=== PATIENT | female | born 1945 | race Caucasian/White ===

== ENCOUNTER → 2017-07-17 | Outpatient (CLI) | payer MEDICARE, OTHER ==
[~2017-07-17] MED LIST: ASP81TEC PO; Atorvastatin Calcium PO; CLPD75T PO; DILT360C30 PO; ENXP100I SC; HYDR25TA4 PO; LOSA100T7 PO; LVT.025T PO; MTF500T PO; MTP50T PO; RIVA20TA2 PO; RNT150T PO; SPRN25T PO; WARF5TAB PO
== END ==
LOC: WOUNDCARE 13:57
PROVIDERS: ATTEND Nurse Practitioner
DX: E11.622 Type 2 diabetes mellitus with other skin ulcer (principal); L97.512 Non-pressure chronic ulcer of other part of right foot with fat layer exposed; L03.031 Cellulitis of right toe
CPT/HCPCS: 11042

== ENCOUNTER → 2017-07-24 | Outpatient (CLI) | payer MEDICARE, OTHER | LOC: WOUNDCARE 13:08 | PROVIDERS: ATTEND Surgery | DX: E11.622 Type 2 diabetes mellitus with other skin ulcer (principal); L97.512 Non-pressure chronic ulcer of other part of right foot with fat layer exposed; L03.031 Cellulitis of right toe | CPT/HCPCS: 99212 ==

== ENCOUNTER → 2017-07-31 | Outpatient (CLI) | payer MEDICARE, OTHER | LOC: WOUNDCARE 13:04 | PROVIDERS: ATTEND Nurse Practitioner | DX: E11.622 Type 2 diabetes mellitus with other skin ulcer (principal); L97.512 Non-pressure chronic ulcer of other part of right foot with fat layer exposed; L03.031 Cellulitis of right toe | CPT/HCPCS: 99212 ==

== ENCOUNTER → 2017-08-14 | Outpatient (CLI) | payer MEDICARE, OTHER | LOC: WOUNDCARE 13:07 | PROVIDERS: ATTEND Nurse Practitioner | DX: E11.622 Type 2 diabetes mellitus with other skin ulcer (principal); L97.512 Non-pressure chronic ulcer of other part of right foot with fat layer exposed; L03.031 Cellulitis of right toe | CPT/HCPCS: 99212 ==

== ENCOUNTER → 2017-08-21 | Outpatient (CLI) | payer MEDICARE, OTHER ==
--- NOTE | 2017-08-21 16:32 | Diagnostic Imaging Report ---
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 TIME OF EXAM: 02:18 p.m. FINDINGS: Three views of the toes of the right foot were obtained. There is generalized demineralization. No bony destructive changes are seen. No soft tissue gas is identified. IMPRESSION: No acute feature identified. Dictated by: Dictated on workstation # [id number]
== END ==
LOC: RAD 13:51
PROVIDERS: ATTEND Nurse Practitioner
DX: E11.622 Type 2 diabetes mellitus with other skin ulcer (principal); L97.512 Non-pressure chronic ulcer of other part of right foot with fat layer exposed
CPT/HCPCS: 73660

== ENCOUNTER → 2017-08-21 | Outpatient (CLI) | payer MEDICARE, OTHER | LOC: WOUNDCARE 13:12 | PROVIDERS: ATTEND Nurse Practitioner | DX: E11.622 Type 2 diabetes mellitus with other skin ulcer (principal); L97.512 Non-pressure chronic ulcer of other part of right foot with fat layer exposed | CPT/HCPCS: 99213 ==

== ENCOUNTER → 2017-08-28 | Outpatient (CLI) | payer MEDICARE, OTHER | LOC: WOUNDCARE 13:05 | PROVIDERS: ATTEND Nurse Practitioner | DX: E11.622 Type 2 diabetes mellitus with other skin ulcer (principal); L97.512 Non-pressure chronic ulcer of other part of right foot with fat layer exposed | CPT/HCPCS: 99213 ==

== ENCOUNTER → 2017-09-11 | Outpatient (CLI) | payer MEDICARE, OTHER | LOC: WOUNDCARE 13:04 | PROVIDERS: ATTEND Nurse Practitioner | DX: E11.622 Type 2 diabetes mellitus with other skin ulcer (principal); L97.512 Non-pressure chronic ulcer of other part of right foot with fat layer exposed | CPT/HCPCS: 99212 ==

== ENCOUNTER 2021-07-07 12:29 | Emergency (ER) | payer MEDICARE, OTHER ==
[~2021-07-07] VITALS: Ht 167 cm; Wt 85.0 kg
--- OUTSIDE RECORDS SUMMARY | 2021-07-07 12:34 | XMS REPORT | Clinical Summary ---
Author Author [facility] Organization [facility] Address Unknown Phone Unavailable Care Team Providers Care Ground Layer Name Role Phone Cecily Bach MD Unavailable Mejia Amezquita PCP Jayda Candelaria MD Unavailable [phone] Source Comments Some departments are not documenting in the electronic medical record. If you d o not see the information that you expected, contact Release of Information in [facility] [email or web address] Information Management department at [phone] for further assistan ce in locating additional records.[facility] Allergies Comments Active Allergy Reactions Severity Noted Date Losartan STOMACH UPSET Low 11/23/2019 Lisinopril NAUSEA AND Low 01/01/2014 VOMITING Ezetimibe DIARRHEA Low 11/25/2018 Medications End Date Status Medication Sig Dispensed Refills Start Date Active metFORMIN (GLUCOPHAGE) Take 500 mg 0 500 mg tablet by mouth three times daily. Active levothyroxine (SYNTHROID) Take 1 Tab by 90 Tab 2 50 mcg tablet mouth daily 5 before breakfast. Active other medication 1 Dose daily. 0 Artichoke Extract 500 mg Active aspirin EC 81 mg tablet Take 81 mg by 0 mouth daily. Active Chromium 200 mcg tab Take 1 tablet 0 by mouth four times daily. Active calcium carbonate (TUMS) Chew 500 mg 0 500 mg (200 mg elemental by mouth as calcium) chewable tablet Needed. Active ascorbic acid (VITAMIN C) Take 1,000 mg 0 500 mg tablet by mouth daily. Active other medication twice daily. 0 Berberine - diabetes support Active omega-3s/dha/epa/fish Take by 0 oil/D3 (VITAMIN-D + mouth. OMEGA-3 PO) Active zinc sulfate 220 mg (50 Take 220 mg 0 mg elemental zinc) by mouth capsule daily. Active Cinnamon Bark 500 mg cap Take by 0 mouth twice daily. Active dilTIAZem CD (CARDIZEM Take one 90 capsule 3 CD) 180 mg capsule capsule by 1 mouth daily. Active furosemide (LASIX) 20 mg TAKE ONE 45 tablet 3 0 tablet TABLET BY 1 MOUTH EVERY 48 HOURS Active XARELTO 20 mg TAKE ONE 30 tablet 11 tabletIndications: Atrial TABLET BY 1 fibrillation with MOUTH DAILY controlled ventricular WITH DINNER response (HCC) TAKE WITH FOOD Active atorvastatin (LIPITOR) 40 TAKE ONE 90 tablet 3 mg tablet TABLET BY 1 MOUTH DAILY Active losartan (COZAAR) 100 mg Take one 90 tablet 2 0 tabletIndications: tablet by 1 Coronary artery disease mouth at involving rincon coronary bedtime artery of rincon heart daily. without angina pectoris, Essential hypertension Active metoprolol XL (TOPROL XL) TAKE ONE 90 tablet 3 25 mg extended release TABLET BY 1 tabletIndications: Atrial MOUTH DAILY fibrillation with controlled ventricular response (HCC), Coronary artery disease involving rincon coronary artery of rincon heart without angina pectoris, Cardiomyopathy (HCC) Active Problems Problem Noted Date Chest pain at rest 09/06/2014 UTI (urinary tract infection) 01/03/2014 CAD (coronary artery disease) 01/03/2014 Overview: Formatting of this note is different fr om the original. A. 09/30/2012 Echo EF 40%, RV nl, bubb le study negative for PFO. 2D only study. B. 10/01/2012 Echo EF 20%, RV mildly i mpaired, non specific MV thickening, mild MR, mild TR, aortic sclerosis with out stenosis, peak PAP was 42 mmHg, aortic root 4.0 cm. C. 12/17/2012 Echo EF of 45%. There is moderate LVH. RV function was normal. There was mitral annular calc ification with trace MR, trace TR, and a mildly dilated aortic root. Her peak pulmonary pressure is 20 mmHg. It should be noted when she was critically ill her EF was as low as 20%. D. 12/22/2013 [facility] [place] [facility] wed EF of 60%. The left main was normal. The LAD had a 90% lesion. T he circumflex was normal. The RCA had a 60% lesion, which was felt to be unobstructed. E. 09/06/2014 MPI EF 62%, no ischemia. F. 10/22/16 ECHO EF = 65%, Moderate L VH G. 11/20/2016 MPI EF of 60%. The end-d iastolic volume was 55 mL. The pulmonary myocardial count ratio was no rmal at 0.34. There was no transient ischemic dilatation. The per fusion pattern was normal. There was no evidence of ischemia. H. 07/15/2019 Echo EF was 55 to 60%, d iastolic function was unable to be assessed, the RV was mildly dilated wit h preserved function, the quantitative parameters were abnormal, the RV S prime was 10 cm/s, the TAPSE was 1.1 cm, the visually the func tion was preserved. She has MAC with nonspecific mitral valve thickenin g, there is decreased mobility of the posterior leaflet, the mean mitral valve gradient was 1.6 mmHg, there is no significant MR, there is trace TR , there is aortic valve sclerosis without stenosis, there is no AI. The peak pulmonary pressure was unable to be calculated. Acute blood loss anemia 01/03/2014 DM2 (diabetes mellitus, type 2) 01/01/2014 GERD (gastroesophageal reflux disease) 01/01/2014 Atrial fibrillation with controlled ventricular respo nse 01/08/2013 History of stroke 12/16/2012 Acute ischemic stroke 10/10/2012 Confusion 09/29/2012 Vision abnormalities 09/29/2012 HTN (hypertension) 09/29/2012 Abnormal MRI 09/29/2012 Hypothyroidism 09/29/2012 Resolved Problems Problem Noted Date Resolved Date Retroperitoneal bleed 01/01/2014 02/07/2014 Surgical History Surgery Date Site/Laterality Comments TONSILLECTOMY HYSTERECTOMY Medical History Medical History Date Comments HTN (hypertension) HLD (hyperlipidemia) DM (diabetes mellitus) (HCC) Stroke (HCC) Atrial fibrillation with RVR (HCC) Heart failure (HCC) Atrial fibrillation with controlled 01/08/2013 ventricular response (HCC) Family History Medical History Relation Name Comments Hypertension Mother Stroke Mother Relation Name Status Comments Father Mother Social History Date Tobacco Use Types Packs/Day Years Used Former Smoker Smokeless Tobacco: Never Used Tobacco Cessation: Counseling Given: No Comments Alcohol Use Standard Drinks/Week No 0 (1 standard drink = 0.6 o z pure alcohol) Sex Assigned at Date Recorded Not on file Last Filed Vital Signs Reading Time Taken Comments Vital Sign 142/84 12/14/2019 1:06 PM CDT Blood Pressure 70 12/14/2019 1:06 PM CDT Pulse 37 C (98.6 F) 12/14/2019 1:06 PM CDT Temperature - - Respiratory Rate 96% 10/09/2017 2:34 PM CDT Oxygen Saturation - - Inhaled Oxygen Concentration 92.6 kg (204 lb 1.6 oz) 12/14/2019 1:06 PM CDT Weight 165.1 cm (5' 5") 12/14/2019 1:06 PM CDT Height 33.96 12/14/2019 1:06 PM CDT Body Mass Index Plan of Treatment Health Maintenance Due Date Last Done Comments MEDICARE ANNUAL WELLNESS 1945 VISIT PNEUMONIA (PPSV23) 1953 VACCINE (1 of 2 - PPSV23) DILATED EYE EXAM 1965 DTAP/TDAP VACCINES (1 - 1965 Tdap) FOOT EXAM 1965 HEPATITIS C SCREENING 1965 PHYSICAL (COMPREHENSIVE) 1965 EXAM BREAST CANCER SCREENING 1987 COLORECTAL CANCER 1997 SCREENING SHINGLES RECOMBINANT 1997 VACCINE (1 of 2) OSTEOPOROSIS 2012 SCREENING/MONITORING HBA1C 12/18/2020 06/20/2020, 11/05/2018, 03/26/2017, Additional history exists INFLUENZA VACCINE 02/25/2021 Results Not on filefrom Last 3 Months Insurance Type Payer Benefit Subscriber ID Effective Phone Address Plan / Dates Group Medicare MEDICARE MEDICARE [id number] 2012-P [phone] [address] [place] [address] Medicare CIGNA CIGNA [id number] 2014-P [phone] [address] MED[address]ARE [id number] [phone] Advance Directives Patient [employer] Explanation Type Date Recorded Advance 01/01/2014 4:03 PM Directive/DPOA Advance Directives 01/08/2013 9:11 AM and Living Will Advance Directives 12/29/2012 1:50 PM and Living Will Advance Directives 12/22/2012 12:27 PM and Living Will Advance Directives 12/17/2012 8:56 AM and Living Will Advance Directives 11/17/2012 11:11 AM and Living Will Advance Directives 10/01/2012 2:30 PM and Living Will Advance Directives 09/30/2012 8:06 AM and Living Will Date Inactivated Comments Code Status Date Activated 01/06/2014 6:04 PM Full Code 01/01/2014 1:22 AM Provider has discussed Code Status No, more discussi on w/Patient or Family? needed 12/18/2012 8:39 PM Full Code 12/16/2012 6:04 PM Provider has discussed Code Status Yes w/Patient or Family? 10/06/2012 1:50 PM Full Code 09/29/2012 8:35 PM Provider has discussed Code Status Yes w/Patient or Family? 09/29/2012 8:35 PM Full Code 09/29/2012 5:54 PM Provider has discussed Code Status No, more discussi on w/Patient or Family? needed Care Teams Start Date End Date Ground Layer Relationship Specialty 09/29/12 Mejia Amezquita PCP - [address] [place] [address] 09/29/12 Cecily Bach MD Neurology [address] [place] [id number] 12/16/12 Jayda Candelaria, Neurology [address] [place] [address]
--- NOTE | 2021-07-07 13:15 | ED Integumentary General ---
General Chief Complaint: Allergic Reaction Stated Complaint: RASH, HIVES Nursing Triage Note: THE PT IS ASSISTED TO THE ROOM BY WHEELCHAIR. NO DISTRESS IS SEEN ON ARRIVAL. LOC IS NORMAL FOR THE PT. THE PT C/O AN ALLERGIC REACTION. Source: patient Exam Limitations: no limitations History of Present Illness Date Seen by Provider: Jul 07, 2021 Time Seen by Provider: 13:13 Initial Comments To ER by private vehicle accompanied by with reports of concern about an allergic reaction. She noticed this yesterday with some redness to her forehead. This does not itch. She has had a fever and general weakness starting yesterday as well. No known injury to the head. History of CVA and her provides most of her care. Timing/Duration: constant Severity: moderate Location: face Possible Cause: no cause identified Associated Symptoms: fever, rash Allergies and Home Medications Allergies Coded Allergies: lisinopril (Unverified Allergy, Unknown, 12/22/13) Patient Home Medication List Home Medication List Reviewed: Yes Aspirin (Aspirin Ec 81 Mg) 81 Mg Tabec, 81 MG PO DAILY Prescribed by: SANJAY CHEN on 12/23/13 160 Clopidogrel Bisulfate (Plavix Tablet) 75 Mg Tab, 75 MG PO DAILY Prescribed by: SANJAY CHEN on 12/23/13 160 Diltiazem Hcl (Diltiazem Er 360 Mg (Once Daily)) 360 Mg Capsule.sa, 360 MG PO DAILY, (Reported) Entered as Reported by: JESSICA OLSON on 12/22/13735 Enoxaparin Sodium (Lovenox Injection) 100 Mg/Ml Soln, 90 MG SC BID Prescribed by: SANJAY CHEN on 12/23/13 160 Hydrochlorothiazide (Hydrochlorothiazide) 25 Mg Tablet, 25 MG PO DAILY, (Report ed) Entered as Reported by: JESSICA OLSON on 12/22/13 07 Levothyroxine Sodium (Synthroid) 25 Mcg Tablet, 25 MCG PO DAILY, (Reported) Entered as Reported by: JESSICA OLSON on 12/22/13 07 Losartan Potassium (Losartan Potassium) 100 Mg Tablet, 50 MG PO DAILY, (Reported) Entered as Reported by: JESSICA OLSON on 12/22/13 07 Metformin Hcl (Metformin 500 Mg) 500 Mg Tablet, 500 EACH PO BID WITH MEALS, (Reported) Entered as Reported by: JESSICA OLSON on 12/22/13 0736 Metoprolol Tartrate (Metoprolol Tartrate 50 Mg) 50 Mg Tablet, 50 MG PO DAILY, (Reported) Entered as Reported by: JESSICA OLSON on 12/22/13 0736 Ranitidine Hcl (Zantac 150 Mg) 150 Mg Tablet, 1 TAB PO BID Prescribed by: SANJAY CHEN on 12/23/13 160 Spironolactone (Aldactone Tablet) 25 Mg Tab, 25 MG PO DAILY, (Reported) Entered as Reported by: JESSICA OLSON on 12/22/13 0736 Warfarin Sodium (Coumadin) 5 Mg Tab, 5 MG PO DAILY@1800 Prescribed by: SANJAY CHEN on 12/23/13 160 [Atorvastatin Calcium] 10 MG TABLET, 10 MG PO HS Prescribed by: SANJAY CHEN on 12/23/131606 Review of Systems Review of Systems Constitutional: see HPI; No chills; fever EENTM: see HPI Respiratory: no symptoms reported Cardiovascular: no symptoms reported Genitourinary: no symptoms reported Musculoskeletal: no symptoms reported Skin: see HPI Psychiatric/Neurological: No Symptoms Reported Endocrine: No Symptoms Reported Past [id number] Hx Immunizations Up To Date Tetanus Booster (TDap): Unknown Past Medical History Reproductive Disorders: No Arthritis Hearing Impairment: Denies Adverse Reaction/Blood Tranf: No Physical Exam Vital Signs Vital Signs - First Documented 07/07/21 12:52 Temp 37.4 Pulse 61 Resp 18 B/P (MAP) 149/78 (101) Pulse Ox 94 Capillary Refill : Less Than 3 Seconds General Appearance: WD/WN, no apparent distress HEENT: PERRL/EOMI, normal ENT inspection, other (Alert and oriented. She has some well demarcated erythema that involves both sides of the forehead causing upper eyelid edema. There is no nidus of infection that is obvious no open or draining wound. No abscess. This is an erysipelas.) Neck: non-tender, full range of motion Respiratory: no respiratory distress, no accessory muscle use Gastrointestinal: normal bowel sounds, non tender Extremities: normal range of motion, non-tender Neurologic/Psychiatric: alert, normal mood/affect, oriented x 3 Skin: normal color, warm/dry Progress/Results/Core Measures Results/Orders Lab Results Laboratory Tests Test 07/07/21 13:10 Range/Units White Blood Count 8.9 4.3-11.0 10^3/uL Red Blood Count 4.66 3.80-5.11 10^6/uL Hemoglobin 12.4 11.5-16.0 g/dL Hematocrit 40 35-52 % Mean Corpuscular Volume 85 80-99 fL Mean Corpuscular Hemoglobin 27 25-34 pg Mean Corpuscular Hemoglobin Concent 31 L 32-36 g/dL Red Cell Distribution Width 15.2 H 10.0-14.5 % Platelet Count 215 130-400 10^3/uL Mean Platelet Volume 10.5 9.0-12.2 fL Immature Granulocyte % (Auto) 0 % Neutrophils (%) (Auto) 83 H 42-75 % Lymphocytes (%) (Auto) 11 L 12-44 % Monocytes (%) (Auto) 5 0-12 % Eosinophils (%) (Auto) 0 0-10 % Basophils (%) (Auto) 0 0-10 % Neutrophils # (Auto) 7.4 1.8-7.8 10^3/uL Lymphocytes # (Auto) 0.9 L 1.0-4.0 10^3/uL Monocytes # (Auto) 0.5 0.0-1.0 10^3/uL Eosinophils # (Auto) 0.0 0.0-0.3 10^3/uL Basophils # (Auto) 0.0 0.0-0.1 10^3/uL Immature Granulocyte # (Auto) 0.0 0.0-0.1 10^3/uL Sodium Level 138 135-145 MMOL/L Potassium Level 3.3 L 3.6-5.0 MMOL/L Chloride Level 105 98-107 MMOL/L Carbon Dioxide Level 21 21-32 MMOL/L Anion Gap 12 5-14 MMOL/L Blood Urea Nitrogen 17 7-18 MG/DL Creatinine 1.10 0.60-1.30 MG/DL Estimat Glomerular Filtration Rate 49 BUN/Creatinine Ratio 15 Glucose Level 226 H 70-105 MG/DL Calcium Level 10.0 8.5-10.1 MG/DL C-Reactive Protein High Sensitivity 14.24 H 0.00-0.50 MG/DL Procalcitonin 0.12 H <0.10 NG/ML Marcie Abernathy - CORTES,PETER J ADMITTING COORDINATOR Cbc With Automated Diff (07/07/21 13:11) Hs C Reactive Protein (07/07/21 13:11) Basic Metabolic Panel (07/07/21 13:11) Ed Iv/Invasive Line Start (07/07/21 13:11) Procalcitonin (Pct) (07/07/21 13:11) Ua Culture If Indicated (07/07/21 13:16) Ceftriaxone 1 Gm Pre-Mix (Rocephin 1 Gm (07/07/21 13:30) Medications Given in ED Current Medications Medications Dose Ordered Sig/Martin Route Start Time Stop Time Status Last Admin Dose Admin Ceftriaxone Sodium/Dextrose 50 ml @ 100 mls/hr ONCE ONCE IV 07/07/21 13:30 07/07/21 13:59 DC 07/07/21 13:26 100 MLS/HR Vital Signs/I&O 07/07/21 12:52 Temp 37.4 Pulse 61 Resp 18 B/P (MAP) 149/78 (101) Pulse Ox 94 Blood Pressure Mean: 101 Departure Communication (Admissions) Given her symptoms of general weakness and fever I will check some labs and urine. However the erythema to the forehead I do not feel is allergic I think this is infectious. This affects bilateral forehead there are no vesicles and this is not a herpes zoster presentation. Impression Primary Impression: Erysipelas Disposition: 01 HOME, SELF-CARE Condition: Stable Departure-Patient Inst. Decision time for Depature: 13:33 Referrals: AMAYA MOJICA DO (PCP) Primary Care Physician Patient Instructions: Erysipelas (DC) Add. Discharge Instructions: 1. Antibiotics as directed. Follow-up with your doctor next week. Return to ER for any worsening. All discharge instructions reviewed with patient and/or family. Voiced understanding. Scripts Cephalexin (Cephalexin) 500 Mg Tablet 500 MG PO QID, #28 TAB Prov: LAURA CORTES APRN 07/07/21 LAURA CORTES APRN Jul 07, 2021 13:15
[2021-07-07 13:19] LABS: BASOPHILS % (AUTO) 0 % (0-10); EOSINOPHILS % (AUTO) 0 % (0-10); HEMATOCRIT 40 % (35-52); HEMOGLOBIN 12.4 g/dL (11.5-16.0); LYMPHOCYTES # (AUTO) 0.9 10^3/uL (1.0-4.0); LYMPHOCYTES % (AUTO) 11 % (12-44); MEAN CORPUSCULAR HEMOGLOBIN 27 pg (25-34); MEAN CORPUSCULAR HGB CONC 31 g/dL (32-36); MEAN CORPUSCULAR VOLUME 85 fL (80-99); MEAN PLATELET VOLUME 10.5 fL (9.0-12.2); MONOCYTES # (AUTO) 0.5 10^3/uL (0.0-1.0); MONOCYTES % (AUTO) 5 % (0-12); NEUTROPHILS # (AUTO) 7.4 10^3/uL (1.8-7.8); NEUTROPHILS % (AUTO) 83 % (42-75); PLATELET COUNT 215 10^3/uL (130-400); WHITE BLOOD COUNT 8.9 10^3/uL (4.3-11.0)
[2021-07-07 13:29] LABS: POTASSIUM 3.3 MMOL/L (3.6-5.0)
[2021-07-07] MEDS ORDERED: cefTRIAXone 1 GM PRE-MIX 50 ML IV ONE (13:30)
[2021-07-07 13:35] LABS: CREATININE SERUM 1.1 MG/DL (0.60-1.30)
[2021-07-07] MEDS ORDERED: CEPH500T PO (14:36)
[2021-07-07 14:41] VITALS: BP 147/78
== END 2021-07-07 14:42 | disposition home or self-care (01) ==
LOC: EDUNIT# 12:29 → ER 12:31
DX: A46 Erysipelas (principal); Z79.01 Long term (current) use of anticoagulants; Z79.82 Long term (current) use of aspirin
CPT/HCPCS: 36415; 80048; 84145; 85025; 86141; 96374

== ENCOUNTER 2023-03-13 04:43 | Emergency (ER) | payer MEDICARE ==
[~2023-03-13] VITALS: Ht 167 cm; Wt 85.0 kg
[~2023-03-13 04:43] MED LIST changes: +CEPH500T PO
[2023-03-13 04:56] VITALS: BP_DIAS 111
[2023-03-13] MEDS ORDERED: LEVO50TA6 (05:07)
[2023-03-13] MEDS ORDERED: LOSA100T58 (05:07)
[2023-03-13] MEDS ORDERED: FURO20TA4 (05:07)
[2023-03-13] MEDS ORDERED: XARELTO (05:07)
[2023-03-13] MEDS ORDERED: CARV6.252 (05:07)
[2023-03-13] MEDS ORDERED: ROSU5TAB13 (05:07)
--- NOTE | 2023-03-13 05:12 | ED GI ---
General Chief Complaint: Abdominal/GI Problems Stated Complaint: DARK URINE/HIGH BLOOD SUGAR/LOWER L ABD/BACK PAIN Source of Information: Patient, Spouse ( DOES MOST OF TALKING FOR PT) History of Present Illness Date Seen by Provider: Mar 13, 2023 Time Seen by Provider: 04:57 Initial Comments PT ARRIVES VIA POV FROM HOME WITH , NEEDS WHEELCHAIR ON ARRIVAL PT "JUST HASN'T FELT GOOD" SINCE LAST FRIDAY --NO APPETITE AND NAUSEA SINCE YESTERDAY SHE HAS BEEN HAVING LEFT FLANK AND LEFT LOWER ABDOMINAL PAIN , HAS BEEN CONSTANT AND GETTING WORSE SINCE LAST NIGHT URINE HAS BEEN DARK, BUT NO DIFFICULTY URINATING AND NO PAIN ON URINATION HAD SMALL BM YESTERDAY. HAS NOT CHECKED TEMP. HAS NOT TAKEN ANYTHING FOR PAIN HAS NOT SOUGHT CARE UNTIL NOW NO HISTORY OF SIMILAR PT IS DIABETIC, BLOOD SUGAR WAS 173 AT 0205. PT IS ON XARELTO FOR ATRIAL FIBRILLATION. SHE ALSO TAKES MEDICATIONS FOR HTN, HYPOTHYROIDISM. PCP: DR. MOJICA [facility]: DR. [place] AT Allergies and Home Medications Allergies Coded Allergies: lisinopril (Unverified Allergy, Unknown, 12/22/13) Patient Home Medication List Home Medication List Reviewed: Yes Aspirin (Aspirin Ec 81 Mg) 81 Mg Tabec, 81 MG PO DAILY Prescribed by: SANJAY CHEN on 12/23/13 1607 Carvedilol (Carvedilol) 6.25 Mg Tablet, (Reported) Entered as Reported by: AFTAB BAI on 03/13/23506 Last Action: New Order Diltiazem Hcl (Diltiazem Er 360 Mg (Once Daily)) 360 Mg Capsule.sa, 360 MG PO DAILY, (Reported) Entered as Reported by: JESSICA OLSON on 12/22/13 0736 Furosemide (Furosemide) 20 Mg Tablet, (Reported) Entered as Reported by: AFTAB BAI on 03/13/23506 Last Action: New Order Levothyroxine Sodium (Synthroid) 25 Mcg Tablet, 25 MCG PO DAILY, (Reported) Entered as Reported by: JESSICA OLSON on 12/22/13 0736 Levothyroxine Sodium (Levothyroxine Sodium) 50 Mcg Tablet, (Reported) Entered as Reported by: AFTAB BAI on 03/13/23506 Last Action: New Order Losartan Potassium (Losartan Potassium) 100 Mg Tablet, (Reported) Entered as Reported by: AFTAB BAI on 03/13/23506 Last Action: New Order Metformin Hcl (Metformin 500 Mg) 500 Mg Tablet, 500 EACH PO BID WITH MEALS, (Reported) Entered as Reported by: JESSICA OLSON on 12/22/13735 Rosuvastatin Calcium (Rosuvastatin Calcium) 5 Mg Tablet, (Reported) Entered as Reported by: AFTAB BAI on 03/13/23506 Last Action: New Order [Xarelto] , (Reported) Entered as Reported by: AFTAB BAI on 03/13/23506 Last Action: New Order Discontinued Medications Cephalexin (Cephalexin) 500 Mg Tablet, 500 MG PO QID Discontinued Reason: No Longer Taking Prescribed by: LAURA CORTES on 07/07/21 143 Last Action: Discontinued Clopidogrel Bisulfate (Plavix Tablet) 75 Mg Tab, 75 MG PO DAILY Discontinued Reason: No Longer Taking Prescribed by: SANJAY CHEN on 12/23/131606 Last Action: Discontinued Enoxaparin Sodium (Lovenox Injection) 100 Mg/Ml Soln, 90 MG SC BID Discontinued Reason: No Longer Taking Prescribed by: SANJAY CHEN on 12/23/131606 Last Action: Discontinued Hydrochlorothiazide (Hydrochlorothiazide) 25 Mg Tablet, 25 MG PO DAILY, (Reported) Discontinued Reason: No Longer Taking Entered as Reported by: JESSICA OLSON on 12/22/13735 Last Action: Discontinued Losartan Potassium (Losartan Potassium) 100 Mg Tablet, 50 MG PO DAILY, (Reported) Discontinued Reason: No Longer Taking Entered as Reported by: JESSICA OLSON on 12/22/13735 Last Action: Discontinued Metoprolol Tartrate (Metoprolol Tartrate 50 Mg) 50 Mg Tablet, 50 MG PO DAILY, (Reported) Discontinued Reason: No Longer Taking Entered as Reported by: JESSICA OLSON on 12/22/13735 Last Action: Discontinued Ranitidine Hcl (Zantac 150 Mg) 150 Mg Tablet, 1 TAB PO BID Discontinued Reason: No Longer Taking Prescribed by: SANJAY CHEN on 12/23/131606 Last Action: Discontinued Spironolactone (Aldactone Tablet) 25 Mg Tab, 25 MG PO DAILY, (Reported) Discontinued Reason: No Longer Taking Entered as Reported by: JESSICA OLSON on 12/22/13735 Last Action: Discontinued Warfarin Sodium (Coumadin) 5 Mg Tab, 5 MG PO DAILY@1800 Discontinued Reason: No Longer Taking Prescribed by: SANJAY CHEN on 12/23/131606 Last Action: Discontinued [Atorvastatin Calcium] 10 MG TABLET, 10 MG PO HS Discontinued Reason: No Longer Taking Prescribed by: SANJAY CHEN on 12/23/131606 Last Action: Discontinued Review of Systems Review of Systems Constitutional: see HPI, malaise EENTM: No Symptoms Reported Respiratory: No Symptoms Reported Cardiovascular: No Symptoms Reported Gastrointestinal: See HPI, Abdominal Pain; Denies Constipated, Denies Diarrhea; Nausea, Poor Appetite Genitourinary: See HPI, Flank Pain Musculoskeletal: see HPI, back pain Skin: no symptoms reported Psychiatric/Neurological: No Symptoms Reported Endocrine: No Symptoms Reported Hematologic/Lymphatic: No Symptoms Reported Past Iehloxm-Xhxacb-Zjusah Hx Patient Social History Tobacco Use?: No Substance use?: No Alcohol Use?: No Immunizations Up To Date Tetanus Booster (TDap): Unknown Past Medical History Atrial Fibrillation, High Cholesterol, Hypertension Neurological: No Reproductive Disorders: No Genitourinary: No Gastrointestinal: No Musculoskeletal: Yes Arthritis Endocrine: Yes (OBESITY) Hypothyroidsim, Diabetes, Non-Insulin dep HEENT: No Hearing Impairment: Denies Psychosocial: No Integumentary: No Blood Disorders: No Adverse Reaction/Blood Tranf: No Physical Exam Vital Signs Vital Signs - First Documented 03/13/23 04:56 Temp 36.9 Pulse 72 Resp 18 B/P (MAP) 201/111 (141) Pulse Ox 98 O2 Delivery Room Air Capillary Refill : Height/Weight/BMI Height: 5'5.00" Weight: 200lbs. 3.2oz. [id number]; 30.00 BMI Method: General Appearance: WD/WN, no apparent distress, obese, other (DOES NOT APPEAR TO BE IN ANY DISCOMFORT OR DISTRESS) Neck: normal inspection Respiratory: normal breath sounds Cardiovascular: irregularly irregular Gastrointestinal: soft, tenderness (LLQ AND LEFT FLANK TENDERNESS) Extremities: normal inspection Back: CVA tenderness (L) Neurologic/Psychiatric: no motor/sensory deficits, alert, normal mood/affect, oriented x 3 Skin: normal color, warm/dry Progress/Results/Core Measures Results/Orders Lab Results Laboratory Tests Test 03/13/23 05:11 03/13/23 05:24 03/13/23 06:49 Range/Units White Blood Count 11.1 H 4.3-11.0 10^3/uL Red Blood Count 4.74 3.80-5.11 10^6/uL Hemoglobin 12.2 11.5-16.0 g/dL Hematocrit 40 35-52 % Mean Corpuscular Volume 84 80-99 fL Mean Corpuscular Hemoglobin 26 25-34 pg Mean Corpuscular Hemoglobin Concent 31 L 32-36 g/dL Red Cell Distribution Width 16.2 H 10.0-14.5 % Platelet Count 232 130-400 10^3/uL Mean Platelet Volume 9.9 9.0-12.2 fL Immature Granulocyte % (Auto) 0 % Neutrophils (%) (Auto) 81 H 42-75 % Lymphocytes (%) (Auto) 14 12-44 % Monocytes (%) (Auto) 4 0-12 % Eosinophils (%) (Auto) 1 0-10 % Basophils (%) (Auto) 0 0-10 % Neutrophils # (Auto) 8.9 H 1.8-7.8 10^3/uL Lymphocytes # (Auto) 1.5 1.0-4.0 10^3/uL Monocytes # (Auto) 0.5 0.0-1.0 10^3/uL Eosinophils # (Auto) 0.1 0.0-0.3 10^3/uL Basophils # (Auto) 0.0 0.0-0.1 10^3/uL Immature Granulocyte # (Auto) 0.0 0.0-0.1 10^3/uL Prothrombin Time 22.1 H 12.2-14.7 SEC INR Comment 1.9 H 0.8-1.4 Activated Partial Thromboplast Time 41 H 24-35 SEC Sodium Level 139 135-145 MMOL/L Potassium Level 3.9 3.6-5.0 MMOL/L Chloride Level 106 98-107 MMOL/L Carbon Dioxide Level 23 21-32 MMOL/L Anion Gap 10 5-14 MMOL/L Blood Urea Nitrogen 20 H 7-18 MG/DL Creatinine 1.22 0.60-1.30 MG/DL Estimat Glomerular Filtration Rate 46 BUN/Creatinine Ratio 16 Glucose Level 188 H 70-105 MG/DL Calcium Level 9.7 8.5-10.1 MG/DL Corrected Calcium 9.7 8.5-10.1 MG/DL Magnesium Level 1.5 L 1.6-2.4 MG/DL Total Bilirubin 0.5 0.1-1.0 MG/DL Aspartate Amino Transf (AST/SGOT) 15 5-34 U/L Alanine Aminotransferase (ALT/SGPT) 12 0-55 U/L Alkaline Phosphatase 88 40-136 U/L Total Protein 7.3 6.4-8.2 GM/DL Albumin 4.0 3.2-4.5 GM/DL Amylase Level 76 25-125 U/L Lipase 32 8-78 U/L Glucometer 186 H 70-110 MG/DL Urine Color RED H Urine Clarity CLOUDY Urine pH 5.5 5-9 Urine Specific [place] 1.020 1.016-1.022 Urine Protein 3+ H NEGATIVE Urine Glucose (UA) TRACE H NEGATIVE Urine Ketones 1+ H NEGATIVE Urine Nitrite NEGATIVE NEGATIVE Urine Bilirubin 1+ H NEGATIVE Urine Urobilinogen 0.2 < = 1.0 MG/DL Urine Leukocyte Esterase NEGATIVE NEGATIVE Urine RBC (Auto) 3+ H NEGATIVE Urine RBC TNTC H /HPF Urine WBC 2-5 /HPF Urine Squamous Epithelial Cells 2-5 /HPF Urine Crystals PRESENT H /LPF Urine Amorphous Sediment FEW SANTOS URATES H /LPF Urine Bacteria MODERATE H /HPF Urine Casts NONE /LPF Urine Mucus NEGATIVE /LPF Urine Culture Indicated YES My Orders Orders - LETTY CROCKETT DO Accucheck Stat ONCE (03/13/23 04:56) Ed Iv/Invasive Line Start (03/13/23 04:56) Monitor-Rhythm Ecg Trace Only (03/13/23 04:56) Amylase (03/13/23 04:56) Cbc With Automated Diff (03/13/23 04:56) Comprehensive Metabolic Panel (03/13/23 04:56) Lipase (03/13/23 04:56) Magnesium (03/13/23 04:56) Ua Culture If Indicated (03/13/23 04:56) Protime With Inr (03/13/23 04:58) Partial Thromboplastin Time (03/13/23 04:58) Ct Abd/Pelvis Wo(Kidney Stone) (03/13/23 05:07) Urine Culture (03/13/23 06:49) Vital Signs/I&O 03/13/23 04:56 Temp 36.9 Pulse 72 Resp 18 B/P (MAP) 201/111 (141) Pulse Ox 98 O2 Delivery Room Air Progress Progress Note : Progress Note VITALS ON ARRIVAL: TEMP 36.9, HR 72, RR 18, BP 201/111, O2 SAT 98% ON ROOM AIR LABS: -CBC IS UNREMARKABLE -CMP WITH GLU 188, MG 1.5, OTHERWISE UNREMARKABLE -UA -PT/PTT/INR 22.1/41/1.9 CT WITH LEFT HYDRONEPHROSIS WITHOUT OBVIOUS URETERAL STONE. GIVEN: -TORADOL -ROCEPHIN CBC UNREMARKABLE WITH WBC NO EVIDENCE OF SEPSIS OR DEHYDRATION DISCUSSED TEST RESULTS, ANTICIPATED COURSE, SYMPTOMATIC TREATMENT, MEDICATIONS, NEED FOR FOLLOW UP AND RETURN PRECAUTIONS Diagnostic Imaging Comments CT SCAN ABDOMEN/PELVIS--PER RADIOLOGIST REPORT AT 0645 COMPARISON: None available. FINDINGS: Lower chest: The lung bases are clear. No pericardial or pleural effusion. Peritoneum: No free intraperitoneal air or fluid. Liver and biliary system: Unenhanced liver is normal. The gallbladder is normal. No biliary duct dilation. Spleen and Pancreas: Spleen is normal. Unenhanced pancreas is grossly normal. Adrenals: Normal. tract: Mild left hydronephrosis and hydroureter without obstructing stone present. There are a few phleboliths around the distal left ureter within the pelvis. A nonobstructing 5 mm stone is present lower pole left kidney. Asymmetric left perinephric stranding is present. No right-sided renal or ureteral stones. GI tract: Stomach is decompressed. No bowel obstruction. No pericolonic inflammatory changes. No secondary features of acute appendicitis Vasculature and Lymph nodes: Normal caliber aorta. No abdominal or pelvic lymphadenopathy. Musculoskeletal: No concerning osseous lesion. IMPRESSION: 1. Mild left hydronephrosis and hydroureter without obstructing ureteral stone. This may be due to recently passed stone. 2. Nonobstructing 5 mm left renal stone. Reviewed: Reviewed by Me Departure Impression Primary Impression: Urinary tract infection Additional Impressions: Hematuria ANTICOAGULATION Disposition: 01 HOME, SELF-CARE Condition: Stable Departure-Patient Inst. Decision time for Depature: 07:28 Referrals: AMAYA OMJICA DO (PCP/Family) Primary Care Physician Patient Instructions: Blood in the Urine (Hematuria), Adult (DC), Urinary Tract Infection, Adult (DC) Add. Discharge Instructions: CONTINUE YOUR REGULAR MEDICATIONS PRESCRIBED TYLENOL NEEDED FOR PAIN INCREASE YOUR FLUID INTAKE, ESPECIALLY CLEAR LIQUIDS NO COFFEE, POP OR TEA FOLLOW UP WITH DR. MOJICA NEXT WEEK FOR RECHECK RETURN TO ER IF SYMPTOMS WORSEN All discharge instructions reviewed with patient and/or family. Voiced un derstanding. Scripts Ondansetron (Ondansetron Odt) 4 Mg Tab.rapdis 4 MG PO Q4H for Nausea/Vomiting, #10 TAB Prov: LETTY CROCKETT DO 03/13/23 Cefdinir (Cefdinir) 300 Mg Capsule 300 MG PO BID, #20 CAP Prov: LETTY CROCKETT DO 03/13/23 LETTY CROCKETT DO Mar 13, 2023 05:12
[2023-03-13 05:26] LABS: BASOPHILS % (AUTO) 0 % (0-10); EOSINOPHILS # (AUTO) 0.1 10^3/uL (0.0-0.3); EOSINOPHILS % (AUTO) 1 % (0-10); HEMATOCRIT 40 % (35-52); HEMOGLOBIN 12.2 g/dL (11.5-16.0); LYMPHOCYTES # (AUTO) 1.5 10^3/uL (1.0-4.0); LYMPHOCYTES % (AUTO) 14 % (12-44); MEAN CORPUSCULAR HEMOGLOBIN 26 pg (25-34); MEAN CORPUSCULAR HGB CONC 31 g/dL (32-36); MEAN CORPUSCULAR VOLUME 84 fL (80-99); MEAN PLATELET VOLUME 9.9 fL (9.0-12.2); MONOCYTES # (AUTO) 0.5 10^3/uL (0.0-1.0); MONOCYTES % (AUTO) 4 % (0-12); NEUTROPHILS # (AUTO) 8.9 10^3/uL (1.8-7.8); NEUTROPHILS % (AUTO) 81 % (42-75); PLATELET COUNT 232 10^3/uL (130-400); WHITE BLOOD COUNT 11.1 10^3/uL (4.3-11.0)
[2023-03-13 05:38] LABS: POTASSIUM 3.9 MMOL/L (3.6-5.0)
[2023-03-13 05:39] LABS: CALCIUM 9.7 MG/DL (8.5-10.1); INR 1.9 (0.8-1.4); PROTHROMBIN TIME PATIENT 22.1 SEC (12.2-14.7)
[2023-03-13 05:41] LABS: TOTAL PROTEIN 7.3 GM/DL (6.4-8.2)
[2023-03-13 05:43] LABS: BILIRUBIN,TOTAL 0.5 MG/DL (0.1-1.0)
[2023-03-13 05:44] LABS: CREATININE SERUM 1.22 MG/DL (0.60-1.30)
[2023-03-13 05:47] LABS: MAGNESIUM 1.5 MG/DL (1.6-2.4)
--- NOTE | 2023-03-13 06:00 | Diagnostic Imaging Report ---
CT ABD/PELVIS WO(KIDNEY STONE) TECHNIQUE: Unenhanced CT imaging of the abdomen and pelvis was performed. 2-D reformats are created and submitted for interpretation. Automatic exposure controls were utilized to optimize patient dose. INDICATION: Left flank pain. COMPARISON: None available. FINDINGS: Lower chest: The lung bases are clear. No pericardial or pleural effusion. Peritoneum: No free intraperitoneal air or fluid. Liver and biliary system: Unenhanced liver is normal. The gallbladder is normal. No biliary duct dilation. Spleen and Pancreas: Spleen is normal. Unenhanced pancreas is grossly normal. Adrenals: Normal. tract: Mild left hydronephrosis and hydroureter without obstructing stone present. There are a few phleboliths around the distal left ureter within the pelvis. A nonobstructing 5 mm stone is present lower pole left kidney. Asymmetric left perinephric stranding is present. No right-sided renal or ureteral stones. GI tract: Stomach is decompressed. No bowel obstruction. No pericolonic inflammatory changes. No secondary features of acute appendicitis Vasculature and Lymph nodes: Normal caliber aorta. No abdominal or pelvic lymphadenopathy. Musculoskeletal: No concerning osseous lesion. IMPRESSION: 1. Mild left hydronephrosis and hydroureter without obstructing ureteral stone. This may be due to recently passed stone. 2. Nonobstructing 5 mm left renal stone. Dictated by: Dictated on workstation # [id number]
[2023-03-13 07:14] LABS: BILIRUBIN,URINE 1+ (NEGATIVE); CLARITY,URINE CLOUDY; COLOR,URINE RED; GLUCOSE, URINE (UA) TRACE (NEGATIVE); KETONES,URINE 1+ (NEGATIVE); NITRITE,URINE NEGATIVE (NEGATIVE); PH,URINE 5.5 (5-9); PROTEIN,URINE 3+ (NEGATIVE)
[2023-03-13 07:15] LABS: AMORPHOUS SEDIMENT,UR FEW AMOR URATES /LPF; BACTERIA,URINE MODERATE /HPF; LEUKOCYTE ESTERASE ,URINE NEGATIVE (NEGATIVE); RBC,URINE TNTC /HPF
[2023-03-13] MEDS ORDERED: cefTRIAXone IV/IM 1,000 MG in NS (IVPB) 50 ML 50 ML IV ONE (07:30)
[2023-03-13] MEDS ORDERED: KETOROLAC INJ 15 MG/ML VIAL IVP ONE (07:30)
[2023-03-13] MEDS ORDERED: ONDA4TAB11 PO (07:40)
[2023-03-13] MEDS ORDERED: CEFD300C3 PO (07:40)
[2023-03-13 08:28] VITALS: BP_SYST 97
== END 2023-03-13 08:28 | disposition home or self-care (01) ==
LOC: EDUNIT# 04:43 → ER 04:46
DX: N39.0 Urinary tract infection, site not specified (principal); R31.9 Hematuria, unspecified; I48.91 Unspecified atrial fibrillation; I10 Essential (primary) hypertension; E03.9 Hypothyroidism, unspecified; E66.9 Obesity, unspecified; Z68.30 Body mass index [BMI] 30.0-30.9, adult; Z79.01 Long term (current) use of anticoagulants
CPT/HCPCS: 36415; 74176; 80053; 81000; 82150; 82947; 83690; 83735; 85025; 85610; 85730; 87088